=== PATIENT | male | born 1975 | race Caucasian/White ===

== ENCOUNTER 2024-08-01 09:19 | Outpatient (REF) | payer MEDICAID, SELFPAY ==
--- OUTSIDE RECORDS SUMMARY | 2024-08-01 09:40 | XMS_ITS | Encounter Summary ---
Author Organization [facility] Address [address] [facility] 7t [place] [address] Care Team Providers Care Electrical Accessories I Assembler Name Role Phone Unavailable Primary Care Provider Unavailabl e Reason for Visit * Reason Onset Date Comments Med Refill 07/26/2024 Encounter Details Date Type Department Care Team (Late st Contact Info) Description 07/26/2024 Telephone [facility] [address] [place], [place] [phone] Anita Sauer MD [address] [place], [place] [phone] Med Refill Social History Tobacco Use Types Packs/Day Years Used Date Smoking Tobacco: Never Assessed Sex and Gender Information Value Date Recorded Sex Assigned at Male 07/26/2024 11:05 AM EDT Legal Sex Male 2:12 AM EDT Gender Identity Male 07/26/2024 11:05 AM EDT Sexual Orientation Straight 07/26/2024 11 :05 AM EDT documented as of this encounter Miscellaneous Notes * Telephone Encounter - Sabiha Rod RN - 07/26/2024 3:14 PM EDT TC to [facility] in [facility] to do med rec with pharmacy per provider request. Spoke with pharmacy buyer Aditi. Aditi reported that pt had last filled medications in February 2024 of the following. Lantus 14 units at bedtime Losartan 25mg once a day Abilify 30mg at bedtime Fluoxetine 40mg once a day Oxcarbazepine 600mg twice a day Per pharmacy, pt has not been prescribed Novolog. documented in this encounter Plan of Treatment Upcoming Encounters Date Type Department Care Team (Late st Contact Info) Description 08/09/2024 1:00 PM EDT Clinical Support [address] [phone] documented as of this encounter Visit Diagnoses Not on filedocumented in this encounter
--- OUTSIDE RECORDS SUMMARY | 2024-08-01 09:40 | XMS_ITS | Clinical Summary ---
Author Organization [id number] Address [address] [facility] [address] [place] [address] Care Team Providers Care Mri Technician Name Role Phone Unavailable Primary Care Provider Unavailabl e Allergies Active Allergy Reactions Criticality Noted Date Comments Codeine 07/26/2024 Medications insulin glargine (Lantus SoloStar) 100 UNIT/ML pen Inject 14 Units under the skin at bedtime. 3 mL 07/26/2024 5 Active aspirin 81 MG EC tablet Take 1 tablet (81 mg) by mouth Once per day. 30 tablet 11 07/26/2024 6 Active losartan (Cozaar) 50 MG tablet Take 1 tablet (50 mg) by mouth Once per day. 30 tablet 11 07/26/2024 6 Active ARIPiprazole (Abilify) 15 MG tablet Take 1 tablet (15 mg) by mouth at bedtime. 30 tablet 07/26/2024 5 Active FLUoxetine (PROzac) 40 MG capsule Take 1 capsule (40 mg) by mouth Once per day. 30 capsule 07/26/2024 6 Active OXcarbazepine (Trileptal) 300 MG tablet Take 1 tablet (300 mg) by mouth 2 times daily. 60 tablet 07/26/2024 6 Active Active Problems Problem Noted Date Diagnosed Date Primary hypertension 07/26/2024 Assessment & Plan (07/26/2024 2:06 PM EDT): Uncontrolled, he is not being compliant with medication for over a month now. Restart losartan 50 mg and follow-up BP with RN in 2 to 3 weeks, follow-up with your PCP in 2 to 3 months. Order labs Advised regarding low sodium diet, avoid smoking and alcohol Type 2 diabetes mellitus wit h hyperglycemia, with long-term current use of insulin 07/26/2024 Assessment & Plan (07/26/2024 2:07 PM EDT): Controlled. A1c is at goal. I will prescribe Lantus 14 units/at bedtime and call [facility] pharmacy in [facility] to confirm Counseled re more frequent low calorie/carb meals. Check fgstk 1X daily Encouraged physical activity as tolerated. FU in 2-3 months with new PCP Bipolar 2 disorder 07/26/2024 Assessment & Plan (07/26/2024 4:26 PM EDT): Per patient descriptions, he has experienced episodes of depression and apparently hypomania. The team nurse called [facility] pharmacy in [place], [place] and confirmed medications, last refilled on March 2024, see encounter regarding med refills I will restart Abilify at a lower dose of 50 mg nightly as well as oxcarbazepine at 300 mg twice daily and titrate up at future visits. Continue fluoxetine 40 mg and follow-up with PCP to decide if he needs BH evaluation Patient feels safe at home and is able to reach out for safety, he is aware of crisis number. Encounters Date Type Department Care Team Description 07/28/2024 Population Health Risk Score [facility] () Department [address] [place] [phone] Provider, Population Health Generic 07/26/2024 1:40 PM EDT Office Visit [facility] [address] [place] [phone] Anita Sauer MD Type 2 diabetes mellitus with hyperglycemia, with long-term current use of insulin (CMS/HCC) (Primary Dx); Primary hypertension; Bipolar 2 disorder (CMS/HCC) 07/26/2024 Telephone [facility] [address] [place] [phone] Anita Sauer MD Med Refill from Last 3 Months Social History Tobacco Use Types Packs/Day Years Used Date Smoking Tobacco: Never Assessed Sex and Gender Information Value Date Recorded Sex Assigned at Male 07/26/2024 11:05 AM EDT Legal Sex Male 2:12 AM EDT Gender Identity Male 07/26/2024 11:05 AM EDT Sexual Orientation Straight 07/26/2024 11 :05 AM EDT Last Filed Vital Signs Vital Sign Reading Time Taken Comments Blood Pressure 192/112 07/26/2024 1:36 PM EDT Man ual Pulse 100 07/26/2024 1:28 PM EDT Temperature 36.4 ??C (97.5 ??F) 07/26/2024 1:28 PM ED T Respiratory Rate 18 07/26/2024 1:28 PM EDT Oxygen Saturation 97% 07/26/2024 1:28 PM EDT Inhaled Oxygen Concentration - - Weight 90.4 kg (199 lb 3.2 oz) 07/26/2024 1:28 P M EDT Height - - Body Mass Index - - Plan of Treatment Upcoming Encounters Date Type Department Care Team (Late st Contact Info) Description 08/09/2024 1:00 PM EDT Clinical Support [address] [id number] Health Maintenance Due Date Last Done Comments CT Colonography 1976 Colonoscopy 1976 Colorectal Cancer Screening 1976 Depression Screening 1976 FIT DNA/Cologuard 1976 FIT 1976 FOBT 1976 HIV Screening 1976 Lipid Panel 1976 SDOH Screening 1976 Sigmoidoscopy 1976 Diabetes: Foot Exam 1986 Eye Exam 1986 Alcohol/Substance Use Screening 1988 Tobacco Screening 1988 Family Planning (PISQ) 06/11/1991 Hepatitis C Screening 1994 DTaP/Tdap/Td Vaccines (1 - Tdap) 06/11/1995 Diabetes: Urine Protein Screening 06/11/1995 Hepatitis B Vaccines (1 of 3 - 19+ 3-dose series) 06/11/1995 Pneumococcal Vaccine: Pediat rics (0 to 5 Years) and At-Risk Patients (6 to 49) Years) (1 of 2 - PCV) 06/11/1995 COVID-19 Vaccine ( - 2023-2 5 season) 2023 Influenza Vaccine (#1) 2023 Diabetes: Hemoglobin A1C 01/26/2025 07/26/2024 Zoster Vaccines (1 of 2) 2026 RSV Patients and Pa tients Aged 60 years or older (1 - 1-dose 75+ series) 06/11/2051 HIB Vaccines Aged Out No longer eligi ble based on patient's age to complete this topic HPV Vaccines Aged Out No longer eligi ble based on patient's age to complete this topic Hepatitis A Vaccines Aged Out No long er eligible based on patient's age to complete this topic IPV Vaccines Aged Out No longer eligi ble based on patient's age to complete this topic Meningococcal B Vaccine Aged Out No l onger eligible based on patient's age to complete this topic Meningococcal Vaccine Aged Out No alisa leonardo eligible based on patient's age to complete this topic RSV under 20 months Aged Out No longe r eligible based on patient's age to complete this topic Rotavirus Vaccines Aged Out No longer eligible based on patient's age to complete this topic Procedures Procedure Name Priority Date/Time Associated Diagnosis Comments POCT GLUCOSE Routine 07/26/2024 1:51 PM EDT Type 2 diabetes mellitus with hyperglycemia, with long-term current use of insulin ([facility]) POCT GLYCATED HEMOGLOBIN, TOTAL Routine 07/26/2024 1:51 PM EDT Type 2 diabetes mellitus with hyperglycemia, with long-term current use of insulin ([facility]) from Last 3 Months Results * (ABNORMAL) POCT A1C (07/26/2024 1:51 PM EDT) Hemoglobin A1C 6.7(A) 4.0 - 6.0 % Swab 07/26/2024 1:51 PM EDT Anita Sauer MD POINT OF CARE TEST ENTER /EDIT ORDERABLES Final Result * (ABNORMAL) POCT glucose manually resulted (07/26/2024 1:51 PM EDT) Glucose Blood, POC 226(A) 60 - 200 mg/dL Blood Capillary blood specimen / Unknown 07/26/2024 1:51 PM EDT Anita Sauer MD POINT OF CARE TEST ENTER /EDIT ORDERABLES Final Result from Last 3 Months Insurance [facility] C[facility]
--- OUTSIDE RECORDS SUMMARY | 2024-08-01 09:40 | XMS_ITS | Encounter Summary ---
Author Organization [employer] Address [address] [facility] 7[address] [place] [address] Care Team Providers Care Community Sports Coordinator Name Role Phone Unavailable Primary Care Provider Unavailabl e Encounter Details Date Type Department Care Team (Late st Contact Info) Description 07/28/2024 Population Health Risk Score [facility] ([facility]) Department [address] [facility] [address] [place] [address] Provider, Population Health Generic Social History Tobacco Use Types Packs/Day Years Used Date Smoking Tobacco: Never Assessed Sex and Gender Information Value Date Recorded Sex Assigned at Male 07/26/2024 11:05 AM EDT Legal Sex Male 2:12 AM EDT Gender Identity Male 07/26/2024 11:05 AM EDT Sexual Orientation Straight 07/26/2024 11 :05 AM EDT documented as of this encounter Plan of Treatment Upcoming Encounters Date Type Department Care Team (Late st Contact Info) Description 08/09/2024 1:00 PM EDT Clinical Support [facility] [address] [place] [address] documented as of this encounter Visit Diagnoses Not on filedocumented in this encounter
[2024-08-01 11:04] LABS: MANUAL DIFF FLAG NO
[2024-08-01 11:22] LABS: Basophils Absolute Auto 0.1 X10*3/uL (0.0-0.2); Basophils Percent Auto 0.6 % (0-2); Eosinophils Absolute Auto 0.4 X10*3/uL (0.0-0.4); Eosinophils Percent Auto 4.2 % (0-4); Hematocrit 38.1 % (42.0-52.0); Hemoglobin 12.9 g/dl (14.0-18.0); Imm Gran Abs Auto 0.03 X10*3/uL (0.00-0.03); Imm Gran Pct Auto 0.3 % (0.0-0.4); Lymphocytes Absolute Auto 1.3 X10*3/uL (1.2-4.9); Lymphocytes Percent Auto 13.5 % (20-40); Mean Corpuscular HGB Conc 33.9 g/dl (31.0-36.0); Mean Corpuscular Hemoglobin 29.5 pg (27.0-33.0); Mean Platelet Volume 9.7 fL (9.4-12.4); Monocytes Absolute Auto 0.7 X10*3/uL (0.1-1.2); Monocytes Percent Auto 7.1 % (2-11); Neutrophils Absolute Auto 6.9 x10*3/uL (2.0-8.3); Neutrophils Percent Auto 74.3 % (45-73); Platelet Count 248 X10*3/uL (160-400); Red Blood Count 4.38 X10*6/uL (4.60-5.80); Red Cell Distribution Width 12.3 % (11.0-16.0); White Blood Count 9.3 X10*3/uL (4.8-10.8)
[2024-08-01 11:53] LABS: HBS Num1 308.85 mIU/mL (0-7.99); HBc Num1 9.55 S/CO (0.00-0.79); HBsAGNum1 0.32 S/CO (0.00-0.99); Hepatitis A Antibody IgM 0.19 Index (0-0.79); Hepatitis B Surface Antigen Negative (Negative); ~HepC Num1 0.08 S/CO (0.00-0.79); ~Hepatitis A Antibody IgM Nonreactive (Nonreactive); ~Hepatitis B Surface Antibody REACTIVE (Nonreactive); ~Hepatitis C Antibody Nonreactive (Nonreactive)
[2024-08-01 11:56] LABS: Alanine Aminotransferase 19 U/L (0-40); Albumin Level 3.9 g/dL (3.5-5.0); Alkaline Phosphatase 127 U/L (39-117); Anion Gap 9 (12-20); Aspartate Amino Transferase 20 U/L (5-37); Bilirubin Total 0.3 mg/dL (0.0-1.0); Blood Urea Nitrogen 45 mg/dL (9-16); Calcium 8.9 mg/dL (8.4-10.2); Carbon Dioxide 25 mmol/L (22-29); Chloride 107 mmol/L (96-108); Cholesterol 159 mg/dL (<200); Estimated Glomerular Filt Rate 28; Glucose Random 136 mg/dL (60-115); HDL Cholesterol 33 mg/dL (>40); LDL Cholesterol Calculated 67 mg/dL (<100); Potassium 4.4 mmol/L (3.3-5.1); Sodium 137 mmol/L (135-145); Total Protein 6.9 g/dL (6.5-8.0); Triglycerides 295 mg/dL (<150)
[2024-08-01 12:15] LABS: TSH reflex Free T4 2.36 uIU/mL (0.32-4.0)
[2024-08-01 12:28] LABS: Reflex LDLD? No
[2024-08-01 13:21] LABS: HBc Num2 8.94 S/CO; HBc Num3 9.03 S/CO; Hepatitis B Core Antibody Reactive (Nonreactive)
== END 2024-08-01 09:20 | disposition home or self-care (01) ==
LOC: HO.HHCL 09:19
PROVIDERS: Visit Provider Internal Medicine
DX: E11.65 Type 2 diabetes mellitus with hyperglycemia (principal); Z79.4 Long term (current) use of insulin; I10 Essential (primary) hypertension
CPT/HCPCS: 36415; 80053; 80061; 84443; 85025; 86704; 86706; 86709; 86803; 87340

== ENCOUNTER 2024-08-23 11:16 | Outpatient (REF) | payer MEDICAID, SELFPAY ==
[2024-08-23 18:11] LABS: Appearance Urine Clear; Color Urine Yellow; Glucose Urine UA Negative (Negative); Leukocyte Esterase Urine Negative (Negative); Nitrite Urine Negative (Negative); PH 5.5 (5.0-9.0); Specific Gravity - Urine 1.015 (1.005-1.025); UMIC TRIGGER UA YES; Urine Blood Moderate (2+) (Negative); Urine Ketones Negative (Negative); Urine Protein 300 (3+) mg/dL (Neg-Trace)
[2024-08-23 18:18] LABS: Estimated Average Glucose 128 mg/dL; Hemoglobin A1c % 6.1 % (<6.0)
[2024-08-23 18:23] LABS: Bacteria Urine None Seen (None Seen); Hyaline Casts Urine 0-2 /LPF (0-2); Squamous Epithelial Cell Urine 0-2 /HPF (0-2); WBC Urine 0-5 /HPF (0-5)
[2024-08-23 18:36] LABS: Creatinine Urine 126.82 mg/dL; Total Protein Urine Random 173 mg/dL (<12)
[2024-08-23 18:41] LABS: Anion Gap 13 (12-20); Blood Urea Nitrogen 27 mg/dL (9-16); Calcium 9.3 mg/dL (8.4-10.2); Carbon Dioxide 23 mmol/L (22-29); Chloride 109 mmol/L (96-108); Estimated Glomerular Filt Rate 32; Glucose Random 142 mg/dL (60-115); Iron 60 mcg/dL (45-160); Percent Iron Saturation 29 % (15-50); Phosphorus 2.9 mg/dL (2.7-4.5); Potassium 4.5 mmol/L (3.3-5.1); Sodium 140 mmol/L (135-145); Total Iron Binding Capacity 210 mcg/dL (228-428); Unsaturated Iron Binding 150 ug/dL
[2024-08-23 18:48] LABS: Microalbum/Creatinine Ratio Ur 929.6 ug/mg cr (<30)
[2024-08-24 08:11] LABS: HIV AB/AG Nonreactive (Nonreactive); HIV Num 1 0.06 S/CO (0.00-0.99)
[2024-08-24 18:13] LABS: Myeloperoxidase Antibody <1.0 AI; Proteinase 3 PR3 Antibodies <1.0 AI
[2024-08-25 15:28] LABS: Anti Nuclear Antibody Screen NEGATIVE (NEGATIVE)
[2024-08-25 16:17] LABS: Prot Elec - Albumin 3.9 g/dL (3.8-4.8); Prot Elec - Alpha1 0.3 g/dL (0.2-0.3); Prot Elec - Alpha2 0.7 g/dL (0.5-0.9); Prot Elec - Beta 1 0.4 g/dL (0.4-0.6); Prot Elec - Beta 2 0.4 g/dL (0.2-0.5); Prot Elec - Gamma 0.9 g/dL (0.8-1.7); Prot Elec - Total Protein 6.6 g/dL (6.1-8.1)
[2024-08-26 06:39] LABS: PEU-Protein Creat Ratio Rand 1.293 (0.025-0.148); PEU-Rand. Prot/Creat Ratio 1293 mg/g creat (25-148); PEU-Random Ur. Gamma Globulin 12 %; PEU-Random Urine A1 Globulin 6 %; PEU-Random Urine A2 Globulin 6 %; PEU-Random Urine Albumin 63 %; PEU-Random Urine Beta Globulin 13 %; PEU-Random Urine Creatinine 123 mg/dL (20-320); PEU-Random Urine Protein 159 mg/dL (5-25)
[2024-08-26 15:44] LABS: Kappa, Serum 271 mg/dL (176-443); Kappa/Lambda Ratio, Serum 1.74 (1.29-2.55); Lambda, Serum 156 mg/dL (91-240)
[2024-08-30 12:38] LABS: Phospholipase A2 IgG ELISA <4 RU/mL; Phospholipase A2 IgG IFA NEGATIVE (NEGATIVE)
== END 2024-08-23 11:17 | disposition home or self-care (01) ==
LOC: HO.HKASLDS 11:16
PROVIDERS: Referring Provider Internal Medicine; Visit Provider Internal Medicine Critical Care Medicine
DX: I10 Essential (primary) hypertension (principal); N18.9 Chronic kidney disease, unspecified; E11.9 Type 2 diabetes mellitus without complications
CPT/HCPCS: 80048; 81001; 82043; 82306; 82570; 83036; 83520; 83540; 83883; 83970; 84100; 84156; 84165; 84166; 86021; 86038; 86255; 87389; 99202

== ENCOUNTER 2024-08-23 11:16 | Outpatient (AMB) | payer MEDICAID, SELFPAY ==
--- NOTE | 2024-08-23 11:19 | HO.NEPHOV ---
Vital Signs 08/23/24 11:24 Height 5 ft 11 in Weight 187 lb 4 oz BMI 26.1 BP 142/90 H Blood Pressure Location Lt brachial Position Sitting Pulse 93 Pulse Source Pulse Oximeter Pulse Oximetry (%) 97 Oxygen Delivery Method Room Air Intake Visit Reasons: ENP: CDK stg 4- LVM Order Packer Or Packager Required: No Accompanied by: Mother Allergies codeine Allergy (Verified 08/23/24 11:24) Facial Swelling HPI Comments Details: 49-year-old gentleman with past medical history of hypertension, diabetes mellitus on Lantus 14 units bedtime is here to establish care for chronic kidney disease stage 4. Hypertension: On losartan 100 mg Diabetes mellitus: for the past 30 years; On Lantus 14 units bedtime, last HbA1c 6.something , blood sugars well-controlled as per patient He was seeing a lithographic stripper in [place] for about 6 months. Had an epsiode of CHARLENE in July 2023 since then has been following. 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 Sanchez CNA) Alcohol intake: current Comment: Rare Patient Tobacco Use Status: Current everyday Tobacco user Substance Use Type: Marijuana Review of Systems Const Details: Const Denies body aches, Denies chills Eyes Denies blurry vision and Denies change in vision ENT Denies bleeding gums and Denies change in voice Card Denies chest pain and Denies leg ulcers Resp Denies cough and Denies excessive phlegm production GI Denies abdominal pain and Denies bloating Denies hematuria, Denies urinary frequency and Denies difficulty voiding Musc Denies abnormal gait Neuro Denies Neuro-related abnormal movements, Denies abnormal gait and Denies behavioral changes Endo Denies excessive sweating and Denies fatigue Physical Exam General: not in any acute distress, ill appearing, smells like cigarette Nutritional Appearance: well nourished and overweight Eyes: appearance normal, both eyes and all related structures; Alignment and Position: alignment normal and position normal Neck: No lymphadenopathy, no thyromegaly Resp: bilateral air entry equal, no added sounds present Cardio: Regular rate, regular rhythm; Heart sounds: S1 normal heart sound present and S2 normal heart sound present GI: soft, nontender, no guarding, no hepatosplenomegaly : bladder normal to inspection, bladder normal to palpation, no renal angle tenderness Skin: no rashes or lesions noted and elasticity normal Neuro: alert, oriented x 3, moves all extremities Results Reviewed Nephrology Results: Hgb 12.9 g/dl (14.0-18.0) L 08/01/24 WBC 9.3 X10*3/uL (4.8-10.8) 08/01/24 Plt Count 248 X10*3/uL (160-400) 08/01/24 Sodium 137 mmol/L (135-145) 08/01/24 Potassium 4.4 mmol/L (3.3-5.1) 08/01/24 Chloride 107 mmol/L (96-108) 08/01/24 Carbon Dioxide 25 mmol/L (22-29) 08/01/24 BUN 45 mg/dL (9-16) H 08/01/24 Creatinine 2.51 mg/dL (0.5-1.4) H 08/01/24 Calcium 8.9 mg/dL (8.4-10.2) 08/01/24 Assessment & Plan Assessment & Plan (1) Hypertension: Code(s): I10 - Essential (primary) hypertension Category: Medical (2) Diabetes mellitus: Code(s): E11.9 - Type 2 diabetes mellitus without complications Category: Medical (3) Chronic kidney disease: Code(s): N18.9 - Chronic kidney disease, unspecified Category: Medical Plan Chronic kidney disease stage IV : Possibly secondary to diabetic kidney disease we will like to rule out other etiologies - creatinine 2.51 , GFR 28 - we will get urine protein creatinine ratio: - we will get Urinalysis - avoid nephrotoxic medications not limited to NSAIDs, contrast etc. - importance of diet- cutting red meat and steak, weight loss, adequate blood pressure control, stop smoking very well explained to patient - hepatitis panel negative, we will get HIV, LEONARDO, ANCA, complements, SPEP, UPEP, serum free light chains, PLA2R Hypertension: - target blood pressures less than 130/90 mm Hg - compliance: Okay - continue losartan Anemia of chronic kidney disease: - hemoglobin 12.9 - will get iron, TIBC, ferritin levels Mineral bone disease: - will get calcium, phos, vitamin-D and PTH levels Total time spent in the clinic is about 40 minutes, 10 minutes on chart review, review of data, 20 minutes on encounter, physical examination, counseling, answering all the questions, 10 minutes on documentation. Orders: Orders Total Protein Urine Random Today E11.9 - Type 2 diabetes mellitus without complications, I10 - Essential (primary) hypertension, N18.9 - Chronic kidney disease, unspecified Phosphorus Today E11.9 - Type 2 diabetes mellitus without complications, I10 - Essential (primary) hypertension, N18.9 - Chronic kidney disease, unspecified Parathyroid Hormone Intact Today E11.9 - Type 2 diabetes mellitus without complications, I10 - Essential (primary) hypertension, N18.9 - Chronic kidney disease, unspecified Vitamin D 25-OH Total Today E11.9 - Type 2 diabetes mellitus without complications, I10 - Essential (primary) hypertension, N18.9 - Chronic kidney disease, unspecified Complement C4 Today E11.9 - Type 2 diabetes mellitus without complications, I10 - Essential (primary) hypertension, N18.9 - Chronic kidney disease, unspecified Complement C3 Today E11.9 - Type 2 diabetes mellitus without complications, I10 - Essential (primary) hypertension, N18.9 - Chronic kidney disease, unspecified Phospholipase A2 Receptor Pnl Today E11.9 - Type 2 diabetes mellitus without complications, I10 - Essential (primary) hypertension, N18.9 - Chronic kidney disease, unspecified Basic Metabolic Panel 3 Months E11.9 - Type 2 diabetes mellitus without complications, I10 - Essential (primary) hypertension, N18.9 - Chronic kidney disease, unspecified Basic Metabolic Panel Today E11.9 - Type 2 diabetes mellitus without complications, I10 - Essential (primary) hypertension, N18.9 - Chronic kidney disease, unspecified Creatinine Urine Today E11.9 - Type 2 diabetes mellitus without complications, I10 - Essential (primary) hypertension, N18.9 - Chronic kidney disease, unspecified Microalbumin, Random (w Creat) Today E11.9 - Type 2 diabetes mellitus without complications, I10 - Essential (primary) hypertension, N18.9 - Chronic kidney disease, unspecified IRON PROFILE Today E11.9 - Type 2 diabetes mellitus without complications, I10 - Essential (primary) hypertension, N18.9 - Chronic kidney disease, unspecified HIV Ab/Ag Today E11.9 - Type 2 diabetes mellitus without complications, I10 - Essential (primary) hypertension, N18.9 - Chronic kidney disease, unspecified LEONARDO Reflex Titer and Pattern Today E11.9 - Type 2 diabetes mellitus without complications, I10 - Essential (primary) hypertension, N18.9 - Chronic kidney disease, unspecified ANCA Vasculitides Today E11.9 - Type 2 diabetes mellitus without complications, I10 - Essential (primary) hypertension, N18.9 - Chronic kidney disease, unspecified Protein Electrophoresis, Serum Today E11.9 - Type 2 diabetes mellitus without complications, I10 - Essential (primary) hypertension, N18.9 - Chronic kidney disease, unspecified Protein Electrophoresis,Ran Ur Today E11.9 - Type 2 diabetes mellitus without complications, I10 - Essential (primary) hypertension, N18.9 - Chronic kidney disease, unspecified [place]/Lambda Light Chain Serum Today E11.9 - Type 2 diabetes mellitus without complications, I10 - Essential (primary) hypertension, N18.9 - Chronic kidney disease, unspecified Hemoglobin A1c Today E11.9 - Type 2 diabetes mellitus without complications, I10 - Essential (primary) hypertension, N18.9 - Chronic kidney disease, unspecified Phosphorus 3 Months E11.9 - Type 2 diabetes mellitus without complications, I10 - Essential (primary) hypertension, N18.9 - Chronic kidney disease, unspecified Total Protein Urine Random 3 Months E11.9 - Type 2 diabetes mellitus without complications, I10 - Essential (primary) hypertension, N18.9 - Chronic kidney disease, unspecified Creatinine Urine 3 Months E11.9 - Type 2 diabetes mellitus without complications, I10 - Essential (primary) hypertension, N18.9 - Chronic kidney disease, unspecified UA and rflx microscopic Today E11.9 - Type 2 diabetes mellitus without complications, I10 - Essential (primary) hypertension, N18.9 - Chronic kidney disease, unspecified Coding Level of Care Code New Pt Level 4 (39948) Diagnoses Hypertension I10 Diabetes mellitus E11.9 Chronic kidney disease N18.9
[2024-08-23 11:24] VITALS: BP 142/90; PULSE 93; O2SAT 97; BMI 26.1
--- OUTSIDE RECORDS SUMMARY | 2024-08-23 13:34 | XMS_ITS | Clinical Summary ---
Author Organization [email or web address] Address [address] [facility] [address] [place] [address] Care Team Providers Care Lead Injection Mold Technician Name Role Phone Anita Sauer MD Primary Care Provider + Allergies Active Allergy Reactions Criticality Noted Date Comments Codeine 07/26/2024 Medications insulin glargine (Lantus SoloStar) 100 UNIT/ML pen Inject 14 Units under the skin at bedtime. 3 mL 07/27/19 25 025 Active aspirin 81 MG EC tablet Take 1 tablet (81 mg) by mouth Once per day. 30 tablet 07/27/19 026 Active ARIPiprazole (Abilify) 15 MG tablet Take 1 tablet (15 mg) by mouth at bedtime. 30 tablet 07/27/19 25 025 Active FLUoxetine (PROzac) 40 MG capsule Take 1 capsule (40 mg) by mouth Once per day. 30 capsule 07/27/19 026 Active OXcarbazepine (Trileptal) 300 MG tablet Take 1 tablet (300 mg) by mouth 2 times daily. 60 tablet 07/27/19 026 Active losartan (Cozaar) 100 MG tablet Take 1 tablet (100 mg) by mouth Once per day. 30 tablet 08/13/19 026 Active losartan (Cozaar) 50 MG tablet Take 1 tablet (50 mg) by mouth Once per day. 30 tablet 07/27/19 25 025 Discontinued(Re order (will not trigger notification to Pharmacy)) Active Problems Problem Noted Date Diagnosed Date [...] prescribe Lantus 14 units/at bedtime and call [facility] pharmacy in [facility] to confirm Counseled re more frequent low calorie/carb meals. Check fgstk 1X daily Encouraged physical activity as tolerated. FU in 2-3 months with new PCP Bipolar 2 disorder 07/26/2024 Assessment & Plan (07/26/2024 4:26 PM EDT): Per patient descriptions, he has experienced episodes of depression and apparently hypomania. The team nurse called [facility] pharmacy in [place], [place] and confirmed medications, last refilled on [...] Encounters Date Type Department Care Team Description 08/16/2024 Telephone [facility] [place] [address] Anita Sauer MD Appointment Request 08/09/2024 1:00 PM EDT Clinical Support [facility] [place] [address] Tahira Pérez, RN Primary hypertension 08/09/2024 Telephone [facility] [place] [address] Tahira Pérez, RN Blood Pressure Check 08/09/2024 Travel 08/04/2024 Results Follow-Up [facility] [place] [address] Anita Sauer MD POCT A1C, POCT glucose manually resulted, Hepatitis Panel, General, Additional followed-up results: 4 07/28/2024 Population Health Risk Score [facility] () [address] [phone] Provider, Population Health Generic 07/26/2024 1:40 PM EDT Office Visit [facility] [address] [place] [address] Anita Sauer MD Type 2 diabetes mellitus with hyperglycemia, with long-term current use of insulin (CMS/HCC) (Primary Dx); Primary hypertension; Bipolar 2 disorder (CMS/HCC) 07/26/2024 Telephone [facility] [address], [place] [phone] Anita Sauer MD Med Refill from Last [...] Sign Reading Time Taken Comments Blood Pressure 184/104 08/09/2024 1:16 PM EDT Pulse 88 08/09/2024 1:16 PM EDT Temperature 36.4 ??C (97.5 ??F) 07/26/2024 1:28 PM ED T Respiratory Rate 18 07/26/2024 1:28 PM EDT Oxygen Saturation 97% 07/26/2024 1:28 PM EDT Inhaled Oxygen Concentration - - Weight 90.4 kg (199 lb 3.2 oz) 07/26/2024 1:28 P M EDT Height - - Body Mass Index - - Plan of Treatment Health Maintenance Due Date Last Done Comments CT Colonography 1976 Colonoscopy 1976 Colorectal Cancer Screening 1976 Depression Screening 1976 FIT DNA/Cologuard 1976 FIT 1976 FOBT 1976 HIV Screening 1976 SDOH Screening 1976 Sigmoidoscopy 1976 Disability Screening 1976 Diabetes: Foot Exam 1986 Eye Exam 1986 Alcohol/Substance Use Screening 1988 Tobacco Screening 1988 Family Planning (PISQ) 06/11/1991 DTaP/Tdap/Td Vaccines (1 - Tdap) 06/11/1995 Diabetes: Urine Protein Screening 06/11/1995 Hepatitis B Vaccines (1 of 3 - 19+ 3-dose series) 06/11/1995 Pneumococcal Vaccine: Pediat rics (0 to 5 Years) and At-Risk Patients (6 to 49) Years) (1 of 2 - PCV) 06/11/1995 COVID-19 Vaccine ( - 2023-2 5 season) 2023 Influenza Vaccine (Season Ended) 2024 Diabetes: Hemoglobin A1C 01/26/2025 07/26/2024 Lipid Panel 08/01/2025 08/01/2024 Zoster Vaccines (1 of 2) 2026 RSV Patients and Pa tients Aged 60 years or older (1 - 1-dose 75+ series) 06/11/2051 Hepatitis C Screening Completed 08/01/2024 HIB Vaccines Aged Out No longer eligi [...] Procedure Name Priority Date/Time Associated Diagnosis Comments CBC WITH AUTO DIFFERENTIAL Routine 08/01/2024 9:25 AM EDT Type 2 diabetes mellitus with hyperglycemia, with long-term current use of insulin ([facility]) COMPREHENSIVE METABOLIC PANEL Routine 08/01/2024 9:25 AM EDT Primary hypertension TSH W/REFLEX TO FT4 Routine 08/01/2024 9 :25 AM EDT Primary hypertension LIPID PANEL WITH REFLEX TO DIRECT LDL Routine 08/01/2024 9:25 AM EDT Type 2 diabetes mellitus with hyperglycemia, with long-term current use of insulin ([facility]) Primary hypertension HEPATITIS PANEL, GENERAL Routine 08/01/2024 9:25 AM EDT Type 2 diabetes mellitus with hyperglycemia, with long-term current use of insulin ([facility]) POCT GLUCOSE Routine 07/26/2024 1:51 PM EDT Type 2 diabetes mellitus with hyperglycemia, with long-term current use of insulin ([facility]) POCT GLYCATED HEMOGLOBIN, TOTAL Routine 07/26/2024 1:51 PM EDT Type 2 diabetes mellitus with hyperglycemia, with long-term current use of insulin ([facility]) from Last 3 Months Results * TSH with Reflex to Free T4 (08/01/2024 9:25 AM EDT) TSH reflex Free T4 2.36 0.32 - 4.0 uIU/mL [facility] Blood 08/01/2024 9:25 AM EDT 08/01/2024 11:00 AM EDT us Anita Sauer MD LAB BLOOD ORDERABLES Fin al Result [facility] [address] [place] [phone] * (ABNORMAL) Lipid Panel with Reflex to Direct LDL (08/01/2024 9:25 AM EDT) Triglycerides 295(H) <150 mg/dL [facility] Comment:Desirable Triglyceri de: less than 150 mg/dLBorderline High Triglyceride 150-199 mg/dLHigh Triglyceride: 200-499 mg/dLVery High Triglyceride: greater than or equal to 5OO mg/dL Cholesterol 159 <200 mg/dL [facility] Comment:Desirable Cholestero l: less than 200 mg/dLBorderline High Cholesterol: 200-239 mg/dLHigh Cholesterol: greater than 239 mg/dL LDL Cholesterol Calculated 67 <100 mg/dL [facility] Comment:Desirable LDL: less than 100 mg/dLNear Optimal/Above Optimal LDL: 110- 129 mg/dLBorderline High LDL: 130-159 mg/dLHigh LDL: 160-189 mg/dLVery High LDL: greater than or equal to 190 mg/dL HDL Cholesterol 33(L) >40 mg/dL [facility] Comment:Desirable HDL: great er than 40 mg/dL Note: This HDL assay may give artificially low results in patients with liver disease. Blood 08/01/2024 9:25 AM EDT 08/01/2024 11:00 AM EDT us Anita Sauer MD LAB BLOOD ORDERABLES Fin al Result Performing Organization Address [facility] de Phone Number [facility] [address] [place] [phone] * Hepatitis Panel, General (08/01/2024 9:25 AM EDT) Hepatitis A IgM Nonreactive Nonreactive [facility] Comment:IgM antibodies to COREY V not detected; does not exclude earlyacute or recovered HAV infection. ~Hepatitis B Surface Antibody REACTIVE Nonreactive [facility] Comment:REACTIVE: > 11.99 mI U/mL Hepatitis B Core Antibody Reactive Nonreactive [facility] Comment:Presumptive evidence of anti-HBc. Hepatitis C Antibody Nonreactive Nonreactive [facility] Comment:Antibodies to HCV no t detected; does not exclude early acuteHCV infection. Hepatitis B Surface Ag Negative Negative [facility] Blood 08/01/2024 9:25 AM EDT 08/01/2024 11:00 AM EDT us Anita Sauer MD LAB BLOOD ORDERABLES Fin al Result Performing Organization Address [facility]/State/ZIP Co de Phone Number [facility] [address] [place] [phone] * (ABNORMAL) CBC auto differential (08/01/2024 9:25 AM EDT) White Blood Count 9.3 4.8 - 10.8 X10*3/uL [facility] Red Blood Count 4.38(L) 4.60 - 5.80 X10*6/uL [facility] Hemoglobin 12.9(L) 14.0 - 18.0 g/dl [facility] Hematocrit 38.1(L) 42.0 - 52.0 % [facility] Mean Corpuscular Volume 87.0 80.0 - 98.0 fL [facility] Mean Corpuscular Hemoglobin 29.5 27.0 - 33.0 pg [facility] Mean Corpuscular HGB Conc 33.9 31.0 - 36.0 g/dl [facility] Red Cell Distribution Width 12.3 11.0 - 16.0 % [facility] Platelet Count 248 160 - 400 X10*3/uL [facility] Mean Platelet Volume 9.7 9.4 - 12.4 fL [facility] Neutrophils Percent Auto 74.3(H) 45 - 73 % [facility] Imm Gran Pct Auto 0.3 0.0 - 0.4 % [facility] Lymphocytes Percent Auto 13.5(L) 20 - 40 % [facility] Monocytes Percent Auto 7.1 2 - 11 % [facility] Eosinophils Percent Auto 4.2(H) 0 - 4 % [facility] Basophils Percent Auto 0.6 0 - 2 % [facility] NRBC Pct Auto 0.0 0.0 - 0.2 /100WBC [facility] Neutrophils Absolute Auto 6.9 2.0 - 8.3 x10*3/uL [facility] Imm Gran Abs Auto 0.03 0.00 - 0.03 X10*3/uL [facility] Lymphocytes Absolute Auto 1.3 1.2 - 4.9 X10*3/uL [facility] Monocytes Absolute Auto 0.7 0.1 - 1.2 X10*3/uL [facility] Eosinophils Absolute Auto 0.4 0.0 - 0.4 X10*3/uL [facility] Basophils Absolute Auto 0.1 0.0 - 0.2 X10*3/uL [facility] NRBC Abs Auto 0.000 0.0 - 0.012 X10*3/uL [facility] Blood Venous blood specimen / Unknown 08/01/2024 9:25 AM EDT 08/01/2024 11:00 AM EDT us Anita Sauer MD LAB BLOOD ORDERABLES Fin al Result [facility] [address] [place] [phone] * (ABNORMAL) Comprehensive Metabolic Panel (08/01/2024 9:25 AM EDT) Sodium 137 135 - 145 mmol/L [facility] Potassium 4.4 3.3 - 5.1 mmol/L [facility] Chloride 107 96 - 108 mmol/L [facility] Carbon Dioxide 25 22 - 29 mmol/L [facility] Anion Gap 9(L) 12 - 20 [facility] Urea Nitrogen (BUN) 45(H) 9 - 16 mg/dL [facility] Creatinine, Serum 2.51(H) 0.5 - 1.4 mg/dL [facility] Estimated Glomerular Filt Rate 28 [facility] Comment:Chronic Kidney Disea se: Estimated GFR < 60 mL/min/1.47x0Kgoifi Kidney Disease: Estimated GFR < 15 mL/min/1.73m2 Glucose 136(H) 60 - 115 mg/dL [facility] Calcium 8.9 8.4 - 10.2 mg/dL [facility] Bilirubin, Total 0.3 0.0 - 1.0 mg/dL [facility] Aspartate Amino Transferase 20 5 - 37 U/L [facility] Alanine Aminotransferase 19 0 - 40 U/L [facility] Total Protein 6.9 6.5 - 8.0 g/dL [facility] Albumin Level 3.9 3.5 - 5.0 g/dL [facility] Alkaline Phosphatase 127(H) 39 - 117 U/L [facility] Blood Venous blood specimen / Unknown 08/01/2024 9:25 AM EDT 08/01/2024 11:00 AM EDT Anita Sauer MD LAB BLOOD ORDERABLES Fin al Result [facility] [address] [place] [phone] * (ABNORMAL) POCT A1C (07/26/2024 1:51 PM [...] Final Result from Last 3 Months Insurance [facility] C3 Care Teams Lead Injection Mold Technician Relationship Specialty Start Date End Date Anita Sauer MD [address] [place] [phone] PCP - General Internal Medicine 08/15/24
== END 2024-08-23 11:49 | disposition home or self-care (01) ==
LOC: HO.HKAS 11:17
PROVIDERS: Referring Provider Internal Medicine; Visit Provider Internal Medicine Critical Care Medicine
DX: I12.9 Hypertensive chronic kidney disease with stage 1 through stage 4 chronic kidney disease, or unspecified chronic kidney disease (principal); E11.9 Type 2 diabetes mellitus without complications; N18.9 Chronic kidney disease, unspecified
CPT/HCPCS: 99204

== ENCOUNTER 2024-09-01 13:42 | Outpatient (REF) | payer MEDICAID, SELFPAY ==
[2024-09-01 14:36] LABS: Appearance Urine Clear; Color Urine Yellow; Glucose Urine UA >=1000 mg/dL (Negative); Leukocyte Esterase Urine Negative (Negative); Nitrite Urine Negative (Negative); Specific Gravity - Urine 1.015 (1.005-1.025); UMIC TRIGGER UA YES; Urine Blood Trace (Negative); Urine Ketones Trace mg/dL (Negative); Urine Protein 100 (2+) mg/dL (Neg-Trace)
[2024-09-01 14:39] LABS: Bacteria Urine None Seen (None Seen); Hyaline Casts Urine 0-2 /LPF (0-2); Squamous Epithelial Cell Urine 0-2 /HPF (0-2)
--- OUTSIDE RECORDS SUMMARY | 2024-09-01 14:54 | XMS_ITS | Clinical Summary ---
Author Organization [employer] Address [address] [facility] [address] [place] [address] Care Team Providers Care Horser Up Name Role Phone Anita Sauer MD Primary [...] mouth at bedtime. 30 tablet 07/27/19 25 Active FLUoxetine (PROzac) 40 MG capsule Take 1 capsule (40 mg) by mouth Once per day. 30 capsule 07/27/19 026 Active OXcarbazepine (Trileptal) 300 MG tablet Take 1 tablet (300 mg) by mouth 2 times daily. 60 tablet 07/27/19 026 Active losartan (Cozaar) 100 MG tablet Take 1 tablet (100 mg) by mouth Once per day. 30 tablet 08/13/19 25 026 Active losartan (Cozaar) 50 MG tablet Take 1 tablet (50 mg) by mouth Once per day. 30 tablet 07/27/19 025 Discontinued(Re order (will not trigger notification [...] prescribe Lantus 14 units/at bedtime and call [facility] pharmacy in [facility] to confirm Counseled re more frequent low calorie/carb meals. Check fgstk 1X daily Encouraged physical activity as tolerated. FU in 2-3 months with new PCP Bipolar 2 disorder 07/26/2024 Assessment & Plan (07/26/2024 4:26 PM EDT): Per patient descriptions, he has experienced episodes of depression and apparently hypomania. The team nurse called [facility] pharmacy in [place], [place] and confirmed medications, last refilled on [...] Encounters Date Type Department Care Team Description 08/31/2024 Refill [facility] [address] [place] [phone] Anita Sauer MD 08/16/2024 Telephone [facility] [address] [place] [phone] Anita Sauer MD Appointment Request 08/09/2024 1:00 PM EDT Clinical Support [address] [address] Tahira Pérez, DANIEL Primary hypertension 08/09/[address] [address] Tahira Pérez, DANIEL Blood Pressure Check 08/09/2024 Travel 08/04/2024 Results Follow-Up [facility] [address] [place] [phone] Anita Sauer MD POCT A1C, POCT glucose manually resulted, Hepatitis Panel, General, Additional followed-up results: 4 07/28/2024 Population Health Risk Score [facility] () Department [address] [place] [phone] Provider, Population Health Generic 07/26/2024 1:40 PM EDT Office Visit [facility] [address] [place] [phone] Anita Sauer MD Type 2 diabetes mellitus with hyperglycemia, with long-term current use of insulin (CMS/HCC) (Primary Dx); Primary hypertension; Bipolar 2 disorder (CMS/HCC) 07/26/2024 Telephone [facility] [address] [place] [phone] Anita Sauer MD Med Refill from Last [...] 88 08/09/2024 1:16 PM EDT Temperature 36.4 C (97.5 F) 07/26/2024 1:28 PM EDT Respiratory Rate 18 07/26/2024 1:28 PM EDT [...] Years) and At-Risk Patients (6 to 49) Years (1 of 2 - PCV) 06/11/1995 COVID-19 [...] hyperglycemia, with long-term current use of insulin ([facility]) COMPREHENSIVE METABOLIC PANEL Routine 08/01/2024 9:25 AM EDT Primary hypertension TSH W/REFLEX TO FT4 Routine 08/01/2024 9 :25 AM EDT Primary hypertension LIPID PANEL WITH REFLEX TO DIRECT LDL Routine 08/01/2024 9:25 AM EDT Type 2 diabetes mellitus with hyperglycemia, with long-term current use of insulin (CMS/HCC) Primary hypertension HEPATITIS PANEL, GENERAL Routine 08/01/2024 9:25 AM EDT Type 2 diabetes mellitus with hyperglycemia, with long-term current use of insulin (CMS/HCC) POCT GLUCOSE Routine 07/26/2024 1:51 PM EDT Type 2 diabetes mellitus with hyperglycemia, with long-term current use of insulin ([facility]/HCC) POCT GLYCATED HEMOGLOBIN, TOTAL Routine 07/26/2024 1:51 PM EDT Type 2 diabetes mellitus with hyperglycemia, with long-term current use of insulin ([facility]/HCC) from Last 3 Months Results * TSH with Reflex to Free T4 (08/01/2024 9:25 AM EDT) TSH reflex Free T4 2.36 0.32 - 4.0 uIU/mL [facility] Blood 08/01/2024 9:2 5 AM EDT 08/01/2024 11:00 AM EDT us Anita Sauer MD LAB BLOOD ORDERABLES Fin al Result [facility] [address] [place] [phone] * (ABNORMAL) Lipid Panel with Reflex to Direct LDL (08/01/2024 9:25 AM EDT) Triglycerides 295(H) <150 mg/dL [facility] Comment:Desirable Triglyceri de: less than 150 mg/dLBorderline High Triglyceride 150-199 mg/dLHigh Triglyceride: 200-499 mg/dLVery High Triglyceride: greater than or equal to 5OO mg/dL Cholesterol 159 <200 mg/dL [facility] Comment:Desirable Cholestero l: less than 200 mg/dLBorderline High Cholesterol: 200-239 mg/dLHigh Cholesterol: greater than 239 mg/dL LDL Cholesterol Calculated 67 <100 mg/dL [facility] Comment:Desirable LDL: less than 100 mg/dLNear Optimal/Above Optimal LDL: 110- 129 mg/dLBorderline High LDL: 130-159 mg/dLHigh LDL: 160-189 mg/dLVery High LDL: greater than or equal to 190 mg/dL HDL Cholesterol 33(L) >40 mg/dL [facility] Comment:Desirable HDL: great er than 40 mg/dL Note: This HDL assay may give artificially low results in patients with liver disease. Blood 08/01/2024 9:25 AM EDT 08/01/2024 11:00 AM EDT Anita Sauer MD LAB BLOOD ORDERABLES Fin al Result [facility] [address] [place] [phone] * Hepatitis Panel, General (08/01/2024 9:25 AM EDT) Hepatitis A IgM Nonreactive Nonreactive [facility] Comment:IgM antibodies to COREY V not detected; does not exclude earlyacute or recovered HAV infection. ~Hepatitis B Surface Antibody REACTIVE Nonreactive [facility] Comment:REACTIVE: > 11.99 mI U/mL Hepatitis B Core Antibody Reactive Nonreactive [facility] Comment:Presumptive evidence of anti-HBc. Hepatitis C Antibody Nonreactive Nonreactive [facility] Comment:Antibodies to HCV no t detected; does not exclude early acuteHCV infection. Hepatitis B Surface Ag Negative Negative [facility] Blood 08/01/2024 9:25 AM EDT 08/01/2024 11:00 AM EDT us Anita Sauer MD LAB BLOOD ORDERABLES Fin al Result [facility] [address] [place] [phone] * (ABNORMAL) CBC auto differential (08/01/2024 9:25 AM EDT) White Blood Count 9.3 4.8 - 10.8 X10*3/uL [facility] Red Blood Count 4.38(L) 4.60 - 5.80 X10*6/uL [facility] Hemoglobin 12.9(L) 14.0 - 18.0 g/dl [facility] Hematocrit 38.1(L) 42.0 - 52.0 % [facility] Mean Corpuscular Volume 87.0 80.0 - 98.0 fL [facility] Mean Corpuscular Hemoglobin 29.5 27.0 - 33.0 pg [facility] Mean Corpuscular HGB Conc 33.9 31.0 - 36.0 g/dl [facility] Red Cell Distribution Width 12.3 11.0 - 16.0 % [facility] Platelet Count 248 160 - 400 X10*3/uL [facility] Mean Platelet Volume 9.7 9.4 - 12.4 fL [facility] Neutrophils Percent Auto 74.3(H) 45 - 73 % [facility] Imm Gran Pct Auto 0.3 0.0 - 0.4 % [facility] Lymphocytes Percent Auto 13.5(L) 20 - 40 % [facility] Monocytes Percent Auto 7.1 2 - 11 % [facility] Eosinophils Percent Auto 4.2(H) 0 - 4 % [facility] Basophils Percent Auto 0.6 0 - 2 % [facility] NRBC Pct Auto 0.0 0.0 - 0.2 /100WBC [facility] Neutrophils Absolute Auto 6.9 2.0 - 8.3 x10*3/uL [facility] Imm Gran Abs Auto 0.03 0.00 - 0.03 X10*3/uL [facility] Lymphocytes Absolute Auto 1.3 1.2 - 4.9 X10*3/uL [facility] Monocytes Absolute Auto 0.7 0.1 - 1.2 X10*3/uL [facility] Eosinophils Absolute Auto 0.4 0.0 - 0.4 X10*3/uL [facility] Basophils Absolute Auto 0.1 0.0 - 0.2 X10*3/uL [facility] NRBC Abs Auto 0.000 0.0 - 0.012 X10*3/uL [facility] Blood Venous blood specimen / Unknown 08/01/2024 9:25 AM EDT 08/01/2024 11:00 AM EDT us Anita Sauer MD LAB BLOOD ORDERABLES Fin al Result [facility] [address] [place] [phone] * (ABNORMAL) Comprehensive Metabolic Panel (08/01/2024 9:25 AM EDT) Sodium 137 135 - 145 mmol/L [facility] Potassium 4.4 3.3 - 5.1 mmol/L [facility] Chloride 107 96 - 108 mmol/L [facility] Carbon Dioxide 25 22 - 29 mmol/L [facility] Anion Gap 9(L) 12 - 20 [facility] Urea Nitrogen (BUN) 45(H) 9 - 16 mg/dL [facility] Creatinine, Serum 2.51(H) 0.5 - 1.4 mg/dL [facility] Estimated Glomerular Filt Rate 28 [facility] Comment:Chronic Kidney Disea se: Estimated GFR < 60 mL/min/1.87o4Ouzyzc Kidney Disease: Estimated GFR < 15 mL/min/1.73m2 Glucose 136(H) 60 - 115 mg/dL [facility] Calcium 8.9 8.4 - 10.2 mg/dL [facility] Bilirubin, Total 0.3 0.0 - 1.0 mg/dL [facility] Aspartate Amino Transferase 20 5 - 37 U/L [facility] Alanine Aminotransferase 19 0 - 40 U/L [facility] Total Protein 6.9 6.5 - 8.0 g/dL [facility] Albumin Level 3.9 3.5 - 5.0 g/dL [facility] Alkaline Phosphatase 127(H) 39 - 117 U/L [facility] Blood Venous blood specimen / Unknown 08/01/2024 9:25 AM EDT 08/01/2024 11:00 AM EDT Anita Sauer MD LAB BLOOD ORDERABLES Fin al Result Performing Organization Address City/State/[facility] Co de Phone Number [facility] [address] [place] [phone] * (ABNORMAL) POCT A1C (07/26/2024 1:51 [...] Final Result from Last 3 Months Insurance [facility] C3 Care Teams Horser Up Relationship Specialty Start Date End Date Anita Sauer MD [address] [place] [phone] PCP - General Internal Medicine 08/15/24
[2024-09-02 20:29] LABS: Complement C3 117 mg/dL (82-185)
== END 2024-09-01 13:43 | disposition home or self-care (01) ==
LOC: HO.LAB 13:42
PROVIDERS: Visit Provider Internal Medicine Critical Care Medicine
DX: I12.9 Hypertensive chronic kidney disease with stage 1 through stage 4 chronic kidney disease, or unspecified chronic kidney disease (principal); E11.22 Type 2 diabetes mellitus with diabetic chronic kidney disease; N18.9 Chronic kidney disease, unspecified
CPT/HCPCS: 36415; 81001; 82570; 86160